=== PATIENT | male | born 1960 | race Asian ===

== ENCOUNTER → 2024-11-19 07:13 | Outpatient (REF) | payer MEDICARE, BC, SELFPAY | LOC: RCS 07:13 | PROVIDERS: ATTENDING PHYSICIAN Internal Medicine Interventional Cardiology; FAMILY PHYSICIAN Family Medicine | DX: I25.10 Atherosclerotic heart disease of native coronary artery without angina pectoris (principal); I10 Essential (primary) hypertension; I25.2 Old myocardial infarction; E78.00 Pure hypercholesterolemia, unspecified; E11.29 Type 2 diabetes mellitus with other diabetic kidney complication | CPT/HCPCS: 93306 ==

== ENCOUNTER 2024-12-25 06:24 | Day surgery (SDC) | payer MEDICARE, BC, SELFPAY ==
[2024-12-25 07:45] LABS: Glucose - Point of Care 139 mg/dl (70-99)
== END 2024-12-25 09:57 | disposition home or self-care (01) ==
LOC: GI 06:24
PROVIDERS: ATTENDING PHYSICIAN Student in an Organized Health Care Education/Training Program
DX: Z12.11 Encounter for screening for malignant neoplasm of colon (principal); K57.30 Diverticulosis of large intestine without perforation or abscess without bleeding; K63.89 Other specified diseases of intestine; D12.3 Benign neoplasm of transverse colon; D12.0 Benign neoplasm of cecum; K62.1 Rectal polyp; D17.5 Benign lipomatous neoplasm of intra-abdominal organs; Z86.0101 Personal history of adenomatous and serrated colon polyps
CPT/HCPCS: 45385; 45380; 82962; 88305